=== PATIENT | male | born 1985 ===

== ENCOUNTER 2019-12-11 17:44 | Emergency (ER) | payer BC ==
[2019-12-11] MEDS ORDERED: Sulfamethoxazole/Trimethoprim 800-160 MG Tab ONE (18:30)
--- NOTE | 2019-12-11 18:36 | EDM.PDOC ---
ED HPI GENERAL MEDICAL PROBLEM - General Chief Complaint: Upper Extremity Injury/Pain Stated Complaint: FINGER EDEMA Time Seen by Provider: 12/11/19 17:59 Source of Information: Reports: Patient History Limitations: Reports: No Limitations - History of Present Illness INITIAL COMMENTS - FREE TEXT/NARRATIVE: Reports being bitten or stung on the left ring finger 2 days ago and since point the finger has become more swollen until he was unable to get his weeding ring off. The ring is made from tungsten carbide. Onset Date: 12/09/19 Duration: Day(s): (2) Location: Reports: Upper Extremity, Left Quality: Reports: Burning Severity: Moderate Improves with: Reports: None Worsens with: Reports: None Associated Symptoms: Reports: No Other Symptoms - Related Data Allergies Allergy/AdvReac Type Severity Reaction Status Date / Time cefaclor [From Ceclor] Allergy Edema Verified 12/11/19 18:18 Home Meds: Home Meds Insulin Aspart [NovoLOG] 1.7 units SQ DAILY 12/11/19 [History] atorvaSTATin [Lipitor] 20 mg PO DAILY 12/11/19 [History] lisinopriL [Lisinopril] 10 mg PO DAILY 12/11/19 [History] Review of Systems - Review of Systems Review Of Systems: See Below Constitutional: Reports: No Symptoms Eyes: Reports: No Symptoms Ears: Reports: No Symptoms Nose: Reports: No Symptoms Mouth/Throat: Reports: No Symptoms Respiratory: Reports: No Symptoms Cardiovascular: Reports: No Symptoms Musculoskeletal: Reports: Other (ring finger pain) ED EXAM, GENERAL - Physical Exam Exam: See Below Exam Limited By: No Limitations General Appearance: Alert, WD/WN, No Apparent Distress Ears: Normal External Exam, Normal Canal, Hearing Grossly Normal, Normal TMs Nose: Normal Inspection, Normal Mucosa, No Blood Throat/Mouth: Normal Inspection, Normal Lips, Normal Teeth, Normal Gums, Normal Oropharynx, Normal Voice, No Airway Compromise Head: Atraumatic, Normocephalic Neck: Normal Inspection, Supple, Non-Tender, Full Range of Motion Respiratory/Chest: No Respiratory Distress, Lungs Clear, Normal Breath Sounds, No Accessory Muscle Use, Chest Non-Tender Cardiovascular: Normal Peripheral Pulses, Regular Rate, Rhythm, No Edema, No Gallop, No JVD, No Murmur, No Rub Back Exam: Normal Inspection, Full Range of Motion, NT Extremities: No Pedal Edema, Normal Capillary Refill, Limited Range of Motion. No: Joint Swelling, Arm Pain, Increased Warmth Neurological: Other (moderate swelling distal to the rings) Skin Exam: Warm, Dry, Intact, Normal Color, No Rash Course - Vital Signs Last Recorded V/S: Last Vital Signs Temp 98.9 F 12/11/19 18:23 Pulse 92 12/11/19 18:23 Resp 16 12/11/19 18:23 BP 153/91 H 12/11/19 18:23 Pulse Ox 99 12/11/19 18:23 Departure - Departure Time of Disposition: 18:58 Disposition: Home, Self-Care 01 Condition: Good Clinical Impression: Tight ring on finger, Cellulitis of finger of left hand - Discharge Information *PRESCRIPTION DRUG MONITORING PROGRAM REVIEWED*: Not Applicable *COPY OF PRESCRIPTION DRUG MONITORING REPORT IN PATIENT ERASMO: Not Applicable Forms: ED Department Discharge Sepsis Event Note (ED) - Focused Exam Vital Signs: Vital Signs Temp Pulse Resp BP Pulse Ox 12/11/19 18:23 98.9 F 92 16 153/91 H 99 - Assessment/Plan Plan: Ring was squeezed with [facility] pliers until it fractured.
== END 2019-12-11 19:00 | disposition home or self-care (01) ==
LOC: LB.ED 17:44
DX: L03.012 Cellulitis of left finger (principal); M79.89 Other specified soft tissue disorders; Z88.8 Allergy status to other drugs, medicaments and biological substances; Z79.4 Long term (current) use of insulin; Z79.899 Other long term (current) drug therapy
CPT/HCPCS: 99281; 99283; A9270-GY